=== PATIENT | male | born 1950 | race Caucasian/White ===

== ENCOUNTER 2016-11-24 13:12 | Inpatient (IN) | payer MEDICARE, BC ==
[~2016-11-24] VITALS: Ht 170.2 cm; Wt 87.5 kg
[2016-11-24] VITALS (9 sets, daily range): BP systolic 149–180; BP diastolic 73–83; PULSE 52–59; RESP 18; TEMP 97.8–97.9; O2SAT 98–99
[2016-11-24] MEDS ORDERED: TRAM50TA PO (17:31)
[2016-11-24] MEDS ORDERED: ALPR1TAB3 PO (17:31)
[2016-11-24] MEDS ORDERED: LEVO25TA4 PO (17:31)
[2016-11-24] MEDS ORDERED: PANT40TA3 PO (17:31)
[2016-11-24] MEDS ORDERED: HYDR-2374 PO (17:31)
[2016-11-24] MEDS ORDERED: LACT10SO48 (17:31)
[2016-11-24] MEDS ORDERED: AMLO-170 PO (17:31)
[2016-11-24] MEDS ORDERED: AMLO5TAB2 PO (17:31)
[2016-11-24] MEDS ORDERED: METO50TA PO (17:31)
[2016-11-24] MEDS ORDERED: NALOXONE HCL 0.4 MG/ML AMP IV PRN (17:45)
[2016-11-24] MEDS ORDERED: METOPROLOL TARTRATE 25 MG TAB PO SCH (17:45)
[2016-11-24] MEDS ORDERED: SENNOSIDES 8.6 MG TAB PO PRN (17:45)
[2016-11-24] MEDS ORDERED: CHLORHEXIDINE GLUCONATE 4% SOLN 120 ML BTL TOPICAL SCH (17:45)
[2016-11-24] MEDS ORDERED: BISACODYL 10 MG SUPP RECTAL PRN (17:45)
[2016-11-24] MEDS ORDERED: ceFAZolin 2 GM PREMIX 50 ML IV SCH (17:45)
[2016-11-24] MEDS ORDERED: CEFAZOLIN INJ 500 MG in SODIUM CHLORIDE 0.9% IRR BTL 500 ML IRRIGATION SCH (17:45)
[2016-11-24] MEDS ORDERED: ONDANSETRON HCL 4 MG/2 ML VIAL IVP PRN (17:45)
[2016-11-24] MEDS ORDERED: PAPAVERINE INJ 60 MG, NITROGLYCERIN INJ 100 MCG, DILTIAZEM INJ 100 MG in SODIUM CHLORID... IRRIGATION SCH (17:45)
[2016-11-24] MEDS ORDERED: SODIUM CHLORIDE 0.9% FLUSH 10 ML FLUSH IV FLUSH PRN ×2 (17:45)
[2016-11-24] MEDS ORDERED: MAGNESIUM HYDROXIDE SUSP 30 ML CUP PO PRN (17:45)
[2016-11-24] MEDS ORDERED: INSULIN REGULAR (IV INFUSION) 100 UNITS in SODIUM CHLORIDE 0.9% INJ 100 ML IV SCH (17:45)
[2016-11-24] MEDS ORDERED: LACTULOSE SYRUP 20 GM/30 ML CUP PO PRN (17:45)
[2016-11-24] MEDS ORDERED: NITROGLYCERIN 0.4 MG SL 25 TABS/BTL SL PRN (18:00)
[2016-11-24] MEDS ORDERED: hydrALAZINE HCL 20 MG/ML VIAL IV PUSH PRN (18:00)
--- NOTE | 2016-11-24 18:49 | MH ---
cc: LUPE MCNEIL MD DATE OF ADMISSION 11/24/2016 1951 HISTORY OF PRESENT ILLNESS A 66-year-old male transferred from [facility], patient of Dr. Angus Torres, also Dr. Josesito Barnes, with recent history of exertional shortness of breath for the past several months and started having some initial burning-type pressure in the middle of his chest, radiated to his left ear, jaw and left shoulder. The last time it happened it lasted about [address] Angus Torres and underwent Lexiscan which showed EF of 40%, a fixed inferior defect with partially reversible lateral defect. He then underwent cardiac cath electively today where his EF was 55-60%. The left main had a 75% stenosis and 80% stenosis in the proximal LAD, 90% in the first diagonal. The RCA had 100% stenosis in the proximal vessel. The patient was then transferred to our facility to be evaluated for coronary artery bypass grafting. PAST MEDICAL HISTORY 1. COPD, 2. Fibromyalgia 3. Hepatitis C. He has been on __ and in the past and is followed by Dr. Rubina Barreto 4. Hypertension, 5. Hyperthyroidism 6. Narcolepsy where he takes Ritalin 7. Skin lesions PAST SURGICAL HISTORY 1. Colonoscopy 2. Tonsillectomy. ALLERGIES No known allergies. FAMILY HISTORY Mother of Alzheimer's and Parkinson's. father had history of cancer. Grandfather had TB. SOCIAL HISTORY The patient , three children. Smoked for approximately 15 years, quit nine years ago. Heavy alcohol in the past but quit also nine years ago. REVIEW OF SYSTEMS GENERAL: No night sweats, fever, heat and cold intolerance. SKIN: No psoriasis, itching or hives. HEENT: No blurred vision, hearing loss. RESPIRATORY: Positive for recent shortness of breath. CARDIOVASCULAR: Chest pressure. No paroxysmal nocturnal dyspnea. No orthopnea. GASTROINTESTINAL: No diarrhea, vomiting. GENITOURINARY: No burning, frequency, urgency. MANAGER INVENTORY MANAGEMENT: No history of TIA, CVA, or seizure disorder. ENDOCRINE: No history of hypothyroidism and/or diabetes. PHYSICAL EXAMINATION VITAL SIGNS: Blood pressure 180/80, heart rate of 53, temperature max 97.8, respiratory rate of 18. GENERAL: Patient is awake, alert in no acute distress. HEENT: Head is normocephalic, atraumatic. Pupils equal and reactive. Oral mucosa pink, moist. NECK: Supple. No JVD. CARDIOVASCULAR: S1-S2 regular rate and rhythm. No rubs, murmurs, gallops. LUNGS: Clear to auscultation. No wheezes, rales or rhonchi. ABDOMEN: Soft, nontender. No masses or organomegaly. EXTREMITIES: No cyanosis, clubbing or edema LABORATORY DATA Hemoglobin 14, hematocrit of 44, white cell count 10, platelet count 192. Sodium 141, potassium 4.6, BUN of 15, creatinine 1.3. Serum of 272. CARDIOLOGY STUDIES EKG is pending. IMPRESSION 1. This is a 66-year-old male with recent abnormal Lexiscan, underwent cardiac cath with three-vessel disease. Planning coronary films will be evaluated by Dr. Lupe Mcneil. Procedures, alternatives and risks to be discussed with the patient. Planning will be for coronary artery bypass graft on Sunday with endoscopic harvesting. Further workup is still pending. 2. COPD. We will order p.r.n. nebs if needed. 3. History of hepatitis C 4. Hypertension. We will re-add his home medication. 5. History of narcolepsy. He is adamant about continuing his Ritalin preoperatively. 6. Chronic fibromyalgia and pain. We will reorder his pain medication as home. STS data will be discussed with the patient and documented in the electronic record. Further plan per Dr. Mcneil. Dictated by SHILA Fabian MD ANTHONY López/ /5:36 PM /8:49 AM
[2016-11-24] MEDS: ACETAMINOPHEN/HYDROcodone 325 MG/10 MG TAB PO PRN (19:29)
[2016-11-24] MEDS: ALPRAZolam 1 MG TAB PO PRN (19:29)
[2016-11-24] MEDS: ASPIRIN EC 81 MG TABEC PO SCH (19:29)
[2016-11-24] MEDS ORDERED: PILL SPLITTER OTHER PRN (19:45)
[2016-11-24] MEDS: DOCUSATE SODIUM 50 MG/SENNA 8.6 MG TAB PO SCH (20:58)
[2016-11-24] MEDS: METOPROLOL TARTRATE 25 MG TAB PO SCH (20:58)
[2016-11-24] MEDS: ATORVASTATIN 40 MG TAB PO SCH (20:58)
[2016-11-24] MEDS ORDERED: SODIUM CHLORIDE 0.9% FLUSH 10 ML FLUSH IV FLUSH SCH (21:00)
[2016-11-24] MEDS: SODIUM CHLORIDE 0.9% FLUSH 10 ML FLUSH IV FLUSH SCH (21:01)
--- NOTE | 2016-11-24 22:42 | RADRPT ---
EXAM DATE/TIME: 11/24/2016 21:03 [facility] COMPARISON: No previous studies available for comparison. INDICATIONS : Preop cardiac surgery. MEDICAL HISTORY : Hepatitis C. Hypertension. Syncope. Headache. Numbness. Chest pain. COPD. Dyspnea. ETOH abuse. SURGICAL HISTORY : Tonsillectomy. Cardiac cath. ENCOUNTER: Initial ACUITY: 1 day PAIN SCORE: 8/10 LOCATION: Bilateral leg. TECHNIQUE: Venous ultrasound of the left and right leg was performed from the inguinal ligament to the proximal calf. Real-time, color Doppler and spectral tracing, compression and augmentation techniques were us ed. FINDINGS: RIGHT LEG: There is normal compressibility of the deep venous system from the inguinal region to the proximal ca lf. No echogenic clot is seen in the lumen of the common femoral, femoral, popliteal, and posterior tibial veins. There is a normal response of the venous system to proximal and distal augmentation an d respiration. LEFT LEG: There is normal compressibility of the deep venous system from the inguinal region to the proximal ca lf. No echogenic clot is seen in the lumen of the common femoral, femoral, popliteal, and posterior tibial veins. There is a normal response of the venous system to proximal and distal augmentation an d respiration. CONCLUSION: No evidence of lower extremity DVT on the right or left. Jaciel Hobbs MD on November 24, 2016 at 22:39 Board Certified Radiologist. This report was verified electronically.
--- NOTE | 2016-11-24 22:43 | RADRPT ---
EXAM DATE/TIME: 11/24/2016 20:45 [facility] COMPARISON: No previous studies available for comparison. INDICATIONS : Preop cardiac surgery. MEDICAL HISTORY : Hepatitis C. Hypertension. Syncope. Headache. Numbness. Chest pain. COPD. Dyspnea. ETOH abuse. SURGICAL HISTORY : Tonsillectomy. Cardiac cath. ENCOUNTER: Initial ACUITY: 1 day PAIN SCORE: 8/10 LOCATION: Bilateral neck PEAK SYSTOLIC VELOCITIES (cm/sec): ICA/CCA RATIO: Right: 0.6 Left: 0.8 ICA: Right: 86 Left: 91 CCA: Right: 135 Left: 110 ECA: Right: 105 Left: 103 VERTEBRAL: Right: 54 antegrade Left: 75 antegrade Elevated flow velocities and ICA/CCA ratios have been found to correlate with increased degrees of vessel stenosis, calculated as percentage of diameter relative to a normal segment of distal ICA/CCA FINDINGS: RIGHT CAROTID: No significant stenosis is visualized. The waveforms are within normal limits. LEFT CAROTID: No significant stenosis is visualized. The waveforms are within normal limits. VERTEBRAL ARTERIES: Antegrade flow is seen in both vertebral arteries. MISCELLANEOUS: None. CONCLUSION: Mild calcified plaque of the carotid bulbs bilaterally. No evidence of hemodynamically significant ca rotid stenosis. Jaciel Hobbs MD on November 24, 2016 at 22:40 Board Certified Radiologist. This report was verified electronically.
--- NOTE | 2016-11-24 23:05 | RADRPT ---
EXAM DATE/TIME: 11/24/2016 21:10 [facility] COMPARISON: No previous studies available for comparison. INDICATIONS : Preop cardiac surgery. MEDICAL HISTORY : Hepatitis C. Hypertension. Syncope. Headache. Numbness. Chest pain. COPD. Dyspnea. ETOH abuse. SURGICAL HISTORY : Tonsillectomy. Cardiac cath. ENCOUNTER: Initial ACUITY: 1 day PAIN SCORE: 8/10 LOCATION: Bilateral leg. GREATER SAPHENOUS VEIN THIGH: PROXIMAL: Right 4 mm Left 4 mm MID: Right 4 mm Left 4 mm DISTAL: Right 4 mm Left 4 mm CALF: PROXIMAL: Right 3 mm Left 2 mm MID: Right 2 mm Left 2 mm DISTAL: Right 1 mm Left 1 mm FINDINGS: The venous system of the lower extremities are patent by color Doppler imaging. Measurements of the leg veins (in mm) are listed above. CONCLUSION: Normal examination. Cecilio Sinclair MD on November 24, 2016 at 23:03 Board Certified Radiologist. This report was verified electronically.
[2016-11-25] VITALS (25 sets, daily range): BP systolic 154–202; BP diastolic 60–95; PULSE 53–109; RESP 16–18; TEMP 98–98.6; O2SAT 97–99
[2016-11-25 05:29] LABS: BLOOD, URINE NEG (NEG); COMMENT (UR) CULT NOT INDICATED; CULTURE IF INDICATED CULT NOT INDICATED; GLUCOSE,URINE NEG (NEG); HYALINE CAST, URINE 1 /lpf (RARE); KETONE, URINE NEG (NEG); MUCUS URINE FEW /lpf (OCC); NITRITE,URINE NEG (NEG); PH, URINE 5.5 (5.0-8.5); SQUAMOUS EPITHELIAL CELL URINE <1 /hpf (0-5); URINE COLOR YELLOW (YELLW/STRAW)
[2016-11-25] MEDS: METHYLPHENIDATE HCL 10 MG TAB PO SCH ×2 (06:42→11:30)
[2016-11-25] MEDS: PANTOPRAZOLE SOD 40 MG DELAYED RELEASE TAB PO SCH (06:42)
[2016-11-25] MEDS: LEVOTHYROXINE SODIUM 25 MCG TAB PO SCH (06:42)
[2016-11-25] MEDS: ASPIRIN EC 81 MG TABEC PO SCH (08:07)
[2016-11-25] MEDS: DOCUSATE SODIUM 50 MG/SENNA 8.6 MG TAB PO SCH ×2 (08:07→20:35)
[2016-11-25] MEDS: METOPROLOL TARTRATE 25 MG TAB PO SCH (08:07)
[2016-11-25] MEDS: ACETAMINOPHEN/HYDROcodone 325 MG/10 MG TAB PO PRN ×3 (08:07→19:57)
[2016-11-25] MEDS: SODIUM CHLORIDE 0.9% FLUSH 10 ML FLUSH IV FLUSH SCH ×2 (08:09→20:34)
--- NOTE | 2016-11-25 09:24 | RADRPT ---
EXAM DATE/TIME: 11/25/2016 09:14 [facility] COMPARISON: No previous studies available for comparison. INDICATIONS : Evaluate for pneumonia, pneumothorax, or communicable disease. Pre-op cardiac surgery. MEDICAL HISTORY : Hepatitis C. Hypertension. Syncope. Headache. Numbness. Chest pain. COPD.Dyspnea. ETOH abuse. SURGICAL HISTORY : Tonsillectomy. Cardiac cath. ENCOUNTER: Initial ACUITY: 1 day PAIN SCORE: 0/10 LOCATION: Bilateral chest FINDINGS: PA and lateral views of the chest demonstrate a normal-sized cardiac silhouette. There is no effusion , consolidation, or pneumothorax. The bones and soft tissues demonstrate no acute abnormality. There are degenerative changes of the thoracic spine. CONCLUSION: No acute cardiopulmonary abnormality is identified. Tyrone Pascual MD on November 25, 2016 at 9:20 Board Certified Radiologist. This report was verified electronically.
--- NOTE | 2016-11-25 09:38 | PD.CAR.PN ---
CVT Progress Note Subjective/Hospital Course: 11/25 CP free OR Sunday Objective: Vital Signs Date Time Temp Pulse Resp B/P Pulse Ox O2 Delivery O2 Flow Rate FiO2 11/25/16 09:04 62 11/25/16 09:04 18 11/25/16 08:00 98.4 71 18 180/95 99 11/25/16 08:00 71 11/25/16 06:00 56 11/25/16 05:00 60 11/25/16 04:03 54 11/25/16 04:00 98.0 59 18 160/77 98 11/25/16 03:00 56 11/25/16 02:08 59 11/25/16 01:00 63 11/25/16 00:00 67 11/25/16 00:00 98.0 53 18 154/71 98 11/24/16 23:05 58 11/24/16 22:00 56 11/24/16 21:00 59 11/24/16 20:00 97.9 59 18 149/73 98 11/24/16 20:00 58 11/24/16 19:00 59 11/24/16 18:11 55 11/24/16 17:00 57 11/24/16 16:54 97.8 53 18 180/83 99 11/24/16 16:00 52 Labs: Laboratory Tests Test 11/25/16 05:00 Urine Color YELLOW (YELLW/STRAW) Urine Turbidity CLEAR (CLEAR) Urine pH 5.5 (5.0-8.5) Urine Specific [place] 1.025 (1.002-1.035) Urine Protein NEG mg/dL (NEG-TRACE) Urine Glucose (UA) NEG mg/dL (NEG) Urine Ketones NEG mg/dL (NEG) Urine Occult Blood NEG (NEG) Urine Nitrite NEG (NEG) Urine Bilirubin NEG (NEG) Urine Urobilinogen LESS THAN 2.0 MG/DL (LESS THAN 2.0) Urine Leukocyte Esterase NEG (NEG) Urine RBC LESS THAN 1 /hpf (0-3) Urine WBC 1 /hpf (0-5) Urine Squamous Epithelial <1 /hpf (0-5) Cells Urine Hyaline Casts 1 /lpf (RARE) Urine Mucus FEW /lpf (OCC) Microscopic Urinalysis Comment CULT NOT INDICATED Selena Manley MD Nov 25, 2016 09:38
[2016-11-25] MEDS: traMADol HCL 50 MG TAB PO PRN ×2 (11:30→19:57)
--- NOTE | 2016-11-25 13:25 | EKG ---
Date Performed: 11/24/2016 Time Performed: 18:18:54 PTAGE: 66 years EKG: Sinus bradycardia with borderline 1st degree A-V block Inferior infarct - age undetermined Lateral T wave changes may be due to myocardial ischemia Abnormal ECG NO PREVIOUS TRACING DOCTOR: Angus Torres Interpretating Date/Time 11/25/2016 13:25:12
[2016-11-25] MEDS: METOPROLOL TARTRATE 50 MG TAB PO SCH (20:34)
[2016-11-25] MEDS: ATORVASTATIN 40 MG TAB PO SCH (20:34)
[2016-11-26] VITALS (24 sets, daily range): BP systolic 132–171; BP diastolic 56–88; PULSE 50–74; RESP 18–20; TEMP 98.1–98.7; O2SAT 96–99
[2016-11-26] MEDS ORDERED: METH20CA PO (01:22)
[2016-11-26] MEDS ORDERED: CYCL5TAB PO (01:22)
[2016-11-26 05:29] LABS: BASOPHIL % 0.2 % (0.0-2.0); EOSINOPHIL # 0.1 TH/MM3 (0-0.4); EOSINOPHIL % 0.9 % (0.0-4.0); HEMATOCRIT 46.6 % (39.0-51.0); HEMO FLAGS DIFF FINAL; LYMPH % 39.2 % (9.0-44.0); LYMPHOCYTE # 3.8 TH/MM3 (1.0-4.8); MEAN CELL VOLUME 82.8 FL (80.0-100.0); MEAN CORPUSCULAR HEMOGLOBIN 27.3 PG (27.0-34.0); MEAN CORPUSCULAR HGB CONC 32.9 % (32.0-36.0); MONO % 8.1 % (0.0-8.0); NEUT % 51.6 % (16.0-70.0); PLATELET COUNT 151 TH/MM3 (150-450); RED BLOOD COUNT 5.63 MIL/MM3 (4.50-5.90); RED CELL DISTRIBUTION WIDTH 13.3 % (11.6-17.2); WHITE BLOOD COUNT 9.8 TH/MM3 (4.0-11.0)
[2016-11-26 05:39] LABS: INTERNATIONAL NORMALIZED RATIO 1.1 RATIO; PROTHROMBIN TIME - PATIENT 11.9 SEC (9.8-11.6)
[2016-11-26] MEDS: cloNIDine HCL 0.1 MG TAB PO PRN ×2 (05:54→14:58)
[2016-11-26] MEDS: PANTOPRAZOLE SOD 40 MG DELAYED RELEASE TAB PO SCH (05:55)
[2016-11-26] MEDS: LEVOTHYROXINE SODIUM 25 MCG TAB PO SCH (05:55)
[2016-11-26] MEDS: ACETAMINOPHEN/HYDROcodone 325 MG/10 MG TAB PO PRN ×3 (05:55→18:38)
[2016-11-26] MEDS: METHYLPHENIDATE HCL 10 MG TAB PO SCH ×2 (05:55→11:34)
[2016-11-26] MEDS: traMADol HCL 50 MG TAB PO PRN ×2 (05:55→14:58)
[2016-11-26 05:59] LABS: ALT (GPT) 36 U/L (12-78); ANION GAP 6 MEQ/L (5-15); AST (GOT) 36 U/L (15-37); BLOOD UREA NITROGEN 11 MG/DL (7-18); CHLORIDE 107 MEQ/L (98-107); GLOMERULAR FILTRATION RATE 81 ML/MIN (>89); SODIUM (NA) 141 MEQ/L (136-145)
[2016-11-26 06:01] LABS: ALKALINE PHOSPHATASE 94 U/L (45-117); HDL CHOLESTEROL 35.4 MG/DL (40.0-60.0); LDL CHOLESTEROL 133 MG/DL (0-99); TOTAL BILIRUBIN ADULT 0.8 MG/DL (0.2-1.0)
[2016-11-26] MEDS: DOCUSATE SODIUM 50 MG/SENNA 8.6 MG TAB PO SCH ×2 (07:18→21:00)
[2016-11-26] MEDS: SODIUM CHLORIDE 0.9% FLUSH 10 ML FLUSH IV FLUSH SCH ×2 (07:20→21:16)
[2016-11-26] MEDS: METOPROLOL TARTRATE 50 MG TAB PO SCH ×2 (07:20→21:15)
[2016-11-26] MEDS: ASPIRIN EC 81 MG TABEC PO SCH (07:20)
--- NOTE | 2016-11-26 09:42 | PD.CAR.PN ---
CVT Progress Note Subjective/Hospital Course: 11/25 CP free OR Sunday 11/26 Pain free and hemodynamically stable Awaiting cath films from [facility] Objective: Vital Signs Date Time Temp Pulse Resp B/P Pulse Ox O2 Delivery O2 Flow Rate FiO2 11/26/16 09:18 153/83 11/26/16 09:00 59 11/26/16 08:22 98.5 64 18 171/85 96 11/26/16 08:22 71 11/26/16 06:55 18 11/26/16 06:55 18 11/26/16 06:01 74 11/26/16 05:27 65 11/26/16 04:04 55 11/26/16 03:35 98.1 72 18 164/88 99 11/26/16 03:20 54 11/26/16 02:09 65 11/26/16 01:06 55 11/26/16 00:02 56 11/25/16 23:20 98.3 65 16 Automatic Cuff 97 11/25/16 23:00 55 11/25/16 22:00 58 11/25/16 21:00 58 11/25/16 20:32 98.0 55 18 184/82 97 202/87 11/25/16 20:32 109 11/25/16 18:32 163/92 11/25/16 18:13 85 11/25/16 17:07 71 11/25/16 16:10 71 11/25/16 15:52 58 11/25/16 15:52 98.6 60 18 170/60 99 11/25/16 14:03 63 11/25/16 13:12 68 11/25/16 12:33 69 11/25/16 11:23 98.6 60 18 158/70 97 11/25/16 11:23 57 11/25/16 10:46 54 Labs: Laboratory Tests Test 11/26/16 11/26/16 04:37 05:46 White Blood Count 9.8 TH/MM3 (4.0-11.0) Red Blood Count 5.63 MIL/MM3 (4.50-5.90) Hemoglobin 15.3 GM/DL (13.0-17.0) Hematocrit 46.6 % (39.0-51.0) Mean Corpuscular Volume 82.8 FL (80.0-100.0) Mean Corpuscular Hemoglobin 27.3 PG (27.0-34.0) Mean Corpuscular Hemoglobin 32.9 % Concent (32.0-36.0) Red Cell Distribution Width 13.3 % (11.6-17.2) Platelet Count 151 TH/MM3 (150-450) Mean Platelet Volume 9.3 FL (7.0-11.0) Neutrophils (%) (Auto) 51.6 % (16.0-70.0) Lymphocytes (%) (Auto) 39.2 % (9.0-44.0) Monocytes (%) (Auto) 8.1 % (0.0-8.0) Eosinophils (%) (Auto) 0.9 % (0.0-4.0) Basophils (%) (Auto) 0.2 % (0.0-2.0) Neutrophils # (Auto) 5.0 TH/MM3 (1.8-7.7) Lymphocytes # (Auto) 3.8 TH/MM3 (1.0-4.8) Monocytes # (Auto) 0.8 TH/MM3 (0-0.9) Eosinophils # (Auto) 0.1 TH/MM3 (0-0.4) Basophils # (Auto) 0.0 TH/MM3 (0-0.2) CBC Comment DIFF FINAL Differential Comment Prothrombin Time 11.9 SEC (9.8-11.6) Prothromb Time International 1.1 RATIO Ratio Sodium Level 141 MEQ/L (136-145) Potassium Level 4.0 MEQ/L (3.5-5.1) Chloride Level 107 MEQ/L (98-107) Carbon Dioxide Level 28.0 MEQ/L (21.0-32.0) Anion Gap 6 MEQ/L (5-15) Blood Urea Nitrogen 11 MG/DL (7-18) Creatinine 0.94 MG/DL (0.60-1.30) Estimat Glomerular Filtration 81 ML/MIN (>89) Rate Random Glucose 104 MG/DL (74-106) Calcium Level 8.5 MG/DL (8.5-10.1) Total Bilirubin 0.8 MG/DL (0.2-1.0) Aspartate Amino Transf 36 U/L (15-37) (AST/SGOT) Alanine Aminotransferase 36 U/L (12-78) (ALT/SGPT) Alkaline Phosphatase 94 U/L (45-117) Total Protein 7.9 GM/DL (6.4-8.2) Albumin 3.4 GM/DL (3.4-5.0) Triglycerides Level 135 MG/DL (42-150) Cholesterol Level 195 MG/DL (120-200) LDL Cholesterol 133 MG/DL (0-99) HDL Cholesterol 35.4 MG/DL (40.0-60.0) Cholesterol/HDL Ratio 5.50 RATIO Blood Type A POSITIVE A POSITIVE Antibody Screen NEGATIVE Crossmatch Leukocyte-Reduced Red Blood Cells Blood Bank Comment Result Diagram: 11/26/16 0437 11/26/16 0437 Selena Manley MD Nov 26, 2016 09:42
[2016-11-26 09:51] LABS: HEMOGLOBIN A1a 0.8 %; HEMOGLOBIN A1b 1.6 %; HEMOGLOBIN LA1C 2.1 %; HEMOGLOBIN P3 3.8 %
[2016-11-26] MEDS: ALPRAZolam 1 MG TAB PO PRN (11:34)
[2016-11-26] MEDS: ATORVASTATIN 40 MG TAB PO SCH (21:15)
[2016-11-27] VITALS (27 sets, daily range): BP systolic 124–174; BP diastolic 51–85; PULSE 46–65; RESP 16–20; TEMP 97.6–98.5; O2SAT 97–100
[2016-11-27] MEDS: traMADol HCL 50 MG TAB PO PRN ×2 (00:32→22:30)
[2016-11-27] MEDS: ACETAMINOPHEN/HYDROcodone 325 MG/10 MG TAB PO PRN ×4 (04:23→23:29)
[2016-11-27] MEDS: METHYLPHENIDATE HCL 10 MG TAB PO SCH ×2 (06:19→12:28)
[2016-11-27] MEDS: PANTOPRAZOLE SOD 40 MG DELAYED RELEASE TAB PO SCH (06:20)
[2016-11-27] MEDS: LEVOTHYROXINE SODIUM 25 MCG TAB PO SCH (06:20)
[2016-11-27] MEDS: DOCUSATE SODIUM 50 MG/SENNA 8.6 MG TAB PO SCH ×2 (09:00→20:11)
--- NOTE | 2016-11-27 09:02 | PD.CAR.PN ---
CVT Progress Note Subjective/Hospital Course: sts discussed with pt RISK SCORES About the STS Risk Calculator Procedure: CAB Only Risk of Mortality: 0.631% Morbidity or Mortality: 9.861% Long Length of Stay: 3.322% Short Length of Stay: 55.114% Permanent Stroke: 0.914% Prolonged Ventilation: 7.15% DSW Infection: 0.341% Renal Failure: 1.495% Reoperation: 4.315% 11/25 CP free OR Sunday 11/26 Pain free and hemodynamically stable Awaiting cath films from [facility] Objective: Vital Signs Date Time Temp Pulse Resp B/P Pulse Ox O2 Delivery O2 Flow Rate FiO2 11/27/16 07:42 98.4 58 18 157/81 98 11/27/16 07:37 53 11/27/16 06:00 46 11/27/16 05:00 46 11/27/16 04:00 97.8 53 18 124/58 100 11/27/16 04:00 46 11/27/16 03:00 46 11/27/16 02:00 48 11/27/16 01:00 46 11/27/16 00:00 50 11/27/16 00:00 97.6 57 20 124/51 98 11/26/16 23:00 50 11/26/16 22:00 50 11/26/16 20:00 68 11/26/16 20:00 98.7 67 20 132/56 98 11/26/16 19:00 66 11/26/16 18:06 61 11/26/16 17:14 63 11/26/16 16:13 51 11/26/16 16:12 18 11/26/16 15:15 98.7 66 18 160/80 99 11/26/16 15:15 62 11/26/16 14:21 52 11/26/16 13:00 68 11/26/16 12:44 18 11/26/16 12:00 53 11/26/16 11:43 98.6 61 18 161/81 97 11/26/16 11:43 63 11/26/16 10:06 58 11/26/16 09:18 153/83 11/26/16 09:00 59 Result Diagram: 11/26/16 0437 11/26/16 043 Sharita Tello Nov 27, 2016 09:02
[2016-11-27] MEDS: ASPIRIN EC 81 MG TABEC PO SCH (09:54)
[2016-11-27] MEDS: METOPROLOL TARTRATE 50 MG TAB PO SCH (09:54)
[2016-11-27] MEDS: cloNIDine HCL 0.1 MG TAB PO PRN (09:54)
[2016-11-27] MEDS: ALPRAZolam 1 MG TAB PO PRN ×2 (09:54→20:11)
[2016-11-27] MEDS: SODIUM CHLORIDE 0.9% FLUSH 10 ML FLUSH IV FLUSH SCH ×2 (09:55→20:12)
--- NOTE | 2016-11-27 13:21 | PD.CAR.PN ---
CVT Progress Note Subjective/Hospital Course: 66/ male transferred from [facility] c/o several month hx of SOB, fatigue, underwent lexiscan + reversible defect lateral wall, EF 40%/ Underwent cardiac cath : LM 75%, 80% LAD, 90% 1st diagonal, RCA 100% EF 55 % by cath PMH: fibromyalgia, Hep C, HTN, COPD, Narcolepsy ( ritalin) 11/25 CP free OR Sunday 11/26 Pain free and hemodynamically stable Awaiting cath films from [facility] 11/27 Cardiac cath films reviewed by Dr Mcneil for surgery in am, pain free over the weekend Objective: GENERAL: SKIN: Warm and dry. HEAD: Normocephalic. EYES: No scleral icterus. No injection or drainage. NECK: Supple, trachea midline. No JVD or lymphadenopathy. CARDIOVASCULAR: Regular rate and rhythm without murmurs, gallops, or rubs. RESPIRATORY: Breath sounds equal bilaterally. No accessory muscle use. GASTROINTESTINAL: Abdomen soft, non-tender, nondistended. MUSCULOSKELETAL: No cyanosis, or edema. BACK: Nontender without obvious deformity. No CVA tenderness. Vital Signs Date Time Temp Pulse Resp B/P Pulse Ox O2 Delivery O2 Flow Rate FiO2 11/27/16 12:38 59 11/27/16 12:26 16 11/27/16 12:21 98.1 59 16 142/76 98 11/27/16 11:38 61 11/27/16 11:00 58 11/27/16 10:17 52 11/27/16 10:00 62 18 174/85 97 11/27/16 09:00 62 11/27/16 08:00 58 11/27/16 07:42 98.4 58 18 157/81 98 11/27/16 07:37 53 11/27/16 06:00 46 11/27/16 05:00 46 11/27/16 04:00 97.8 53 18 124/58 100 11/27/16 04:00 46 11/27/16 03:00 46 11/27/16 02:00 48 11/27/16 01:00 46 11/27/16 00:00 50 11/27/16 00:00 97.6 57 20 124/51 98 11/26/16 23:00 50 11/26/16 22:00 50 11/26/16 20:00 68 11/26/16 20:00 98.7 67 20 132/56 98 11/26/16 19:00 66 11/26/16 18:06 61 11/26/16 17:14 63 11/26/16 16:13 51 11/26/16 16:12 18 11/26/16 15:15 98.7 66 18 160/80 99 11/26/16 15:15 62 11/26/16 14:21 52 Result Diagram: 11/26/16 0437 11/26/16436 Telemetry: NSR (1) COPD (chronic obstructive pulmonary disease) Plan: on prn nebs (2) Coronary artery disease Plan: ASA, BB statin (3) Narcolepsy Plan: on ritalin (4) Anxiety (5) Hypertension Plan: stable Sharita Tello Nov 27, 2016 13:21
[2016-11-27] MEDS: LACTULOSE SYRUP 20 GM/30 ML CUP PO SCH (15:27)
[2016-11-27] MEDS: amLODIPine BESYLATE 5 MG TAB PO SCH (15:27)
[2016-11-27] MEDS: ATORVASTATIN 40 MG TAB PO SCH (20:11)
[2016-11-27] MEDS ORDERED: ALBU.5I NEB (20:46)
[2016-11-27] MEDS ORDERED: METOPROLOL TARTRATE 50 MG TAB PO SCH ×2 (21:00→21:30)
[2016-11-27] MEDS ORDERED: RESP: ALBUTEROL 2.5 MG/3 ML NEB (PRN) INH (21:30)
[2016-11-28] VITALS (20 sets, daily range): BP systolic 126–145; BP diastolic 53–72; PULSE 48–89; RESP 16–18; TEMP 96.7–99.4; O2SAT 92–99
[2016-11-28] MEDS: LEVOTHYROXINE SODIUM 25 MCG TAB PO SCH (04:49)
[2016-11-28] MEDS: PANTOPRAZOLE SOD 40 MG DELAYED RELEASE TAB PO SCH (04:49)
[2016-11-28] MEDS: ALPRAZolam 1 MG TAB PO PRN (04:50)
[2016-11-28] MEDS ORDERED: NITROGLYCERIN-DEXTROSE INJ 250 ML IV ONE (05:00)
[2016-11-28] MEDS ORDERED: DEXMEDETOMIDINE INJ 50 ML IV ONE (05:00)
[2016-11-28] MEDS ORDERED: HEPARIN SODIUM - SQ 10,000 UNITS/ML VIAL SQ ONE (05:00)
[2016-11-28] MEDS ORDERED: CALCIUM CHLORIDE 10% SOLN 1 GRAM/10 ML SYR IV ONE (05:00)
[2016-11-28] MEDS ORDERED: GLYCOPYRROLATE 0.2 MG/ML VIAL IV ONE (05:00)
[2016-11-28] MEDS ORDERED: NEOSTIGMINE METHYLSULFATE 10 MG/10 ML VIAL IV PUSH ONE (05:00)
[2016-11-28] MEDS ORDERED: VECURONIUM BROMIDE 10 MG VIAL IV ONE (05:00)
[2016-11-28] MEDS ORDERED: PROTAMINE SULFATE 250 MG/25 ML VIAL IV ONE (05:00)
[2016-11-28] MEDS ORDERED: MAGNESIUM SULFATE 1000 MG/2 ML VIAL (PED) IV ONE (05:00)
[2016-11-28] MEDS ORDERED: ceFAZolin INJ 1,000 MG VIAL IV ONE (05:00)
[2016-11-28] MEDS ORDERED: AMINOCAPROIC ACID INJ 250 MG/ML 20 ML VIAL IV ONE ×2 (05:00→14:30)
[2016-11-28] MEDS ORDERED: ARTIFICIAL TEARS OPTH OINT 3.5 APPLIC/3.5 GM TUBO ONE (05:00)
[2016-11-28] MEDS ORDERED: SODIUM BICARBONATE 8.4% INJ 50 MEQ/50 ML SYR IV ONE (05:00)
[2016-11-28] MEDS: ACETAMINOPHEN/HYDROcodone 325 MG/10 MG TAB PO PRN ×3 (05:29→21:27)
[2016-11-28] MEDS: METHYLPHENIDATE HCL 10 MG TAB PO SCH ×2 (06:15→12:00)
[2016-11-28] MEDS ORDERED: ceFAZolin 2 GM PREMIX 50 ML ONE (06:21)
[2016-11-28] MEDS ORDERED: VANCOMYCIN HCL 1000 MG VIAL ONE (06:21)
[2016-11-28] MEDS ORDERED: methylPREDNISolone SOD SUCC 125 MG/2 ML VIAL ONE (06:21)
[2016-11-28] MEDS ORDERED: HEPARIN SODIUM - SQ 10,000 UNITS/ML VIAL ONE (06:21)
[2016-11-28] MEDS ORDERED: CARDIOPLEGIC IRR 1,000 ML ONE (07:10)
[2016-11-28] MEDS ORDERED: POTASSIUM CHLORIDE 40 MEQ/20 ML VIAL ONE (07:10)
[2016-11-28] MEDS ORDERED: MANNITOL INJ 50 ML ONE (07:11)
[2016-11-28] MEDS ORDERED: SODIUM BICARBONATE 8.4% INJ 50 ML ONE (07:11)
[2016-11-28] MEDS ORDERED: ALBUMIN HUMAN 25% 12.5 GM/50 ML BAGP IV ONE (07:11)
[2016-11-28] MEDS ORDERED: HEPARIN SODIUM - IV 10,000 UNITS/10 ML VIAL ONE (07:12)
[2016-11-28] MEDS ORDERED: CHLORHEXIDINE GLUCONATE 2 % 1 PACK (2 CLOTHS) TOPICAL ONE (07:25)
--- NOTE | 2016-11-28 09:54 | RSPPFT ---
DATE OF PROCEDURE: 11/27/16 COMMENTS: Spirometry shows FVC of 2.5 at 73% of predicted, FEV1 of 1.9 at 73%, FEV1/FVC ratio is normal. Flow is normal at FEF 25-75. Flow volume loop indicates a normal pattern. IMPRESSION: 1. Normal spirometry. 2. Post-bronchodilator study was not done.
[2016-11-28] MEDS ORDERED: LACTATED RINGER'S 1000 ML INJ 500 ML IV PRN (11:22)
[2016-11-28] MEDS ORDERED: Post-op Orders (for Pharmacy) MISC OTHER ONE (11:30)
[2016-11-28] MEDS ORDERED: RESP: RACEPINEPHRINE 2.25% 0.5 ML NEB NEB PRN ×2 (11:30→12:30)
[2016-11-28] MEDS ORDERED: POTASSIUM CHLORIDE 20 MEQ CONTROLLED RELEASE TAB PO PRN ×2 (11:30)
[2016-11-28] MEDS ORDERED: CALCIUM CHLORIDE 10% 1 GRAM/10 ML VIAL IV PRN (11:30)
[2016-11-28] MEDS ORDERED: DEXTROSE 50% IN WATER 50 ML VIAL(D50) IV PUSH PRN (11:30)
[2016-11-28] MEDS ORDERED: POTASSIUM CHLOR 20 MEQ PREMIX 100 ML IV PRN ×3 (11:30)
[2016-11-28] MEDS ORDERED: oxyCODONE/ACETAMINOPHEN 5 MG/325 MG TAB PO PRN (11:30)
[2016-11-28] MEDS ORDERED: MAGNESIUM SULFATE INJ 2 GM in SODIUM CHLORIDE 0.9% INJ 100 ML IV PRN ×4 (11:30)
[2016-11-28] MEDS ORDERED: hydrALAZINE HCL 20 MG/ML VIAL IV PRN (11:30)
[2016-11-28] MEDS ORDERED: ACETAMINOPHEN 325 MG TAB PO PRN (11:30)
[2016-11-28] MEDS ORDERED: INSULIN REGULAR (IV INFUSION) 100 UNITS in SODIUM CHLORIDE 0.9% INJ 99 ML IV SCH (11:30)
[2016-11-28] MEDS ORDERED: ACETAMINOPHEN 650 MG SUPP RECTAL PRN (11:30)
[2016-11-28] MEDS ORDERED: RESP: ALBUTEROL 2.5 MG/IPRATROPIUM 0.5 MG NEB (PRN) NEB ×2 (11:30→12:30)
--- NOTE | 2016-11-28 11:33 | PD.OP ---
cc: Lupe Mcneil MD; Angus Torres MD Operative Report Date of Surgery: Nov 28, 2016 Preoperative Diagnosis: (1) Coronary artery disease (2) Unstable angina Postoperative Diagnosis: same Procedure: CABG x 4 MARI to LAD - good SVG to D! - good SVG to PLB - good SVG to PDA - fair EVH Anesthesia: Dr. Berry Surgeon: Lupe Mcneil Recycling Tech(s): DAVE Vargas Operation and Findings: The risks, benefits, complications, treatment options, and expected outcomes were discussed with the patient. The possibilities of reaction to medication, pulmonary aspiration, perforation of viscus, bleeding, recurrent infection, the need for additional procedures, failure to diagnose a condition, and creating a complication requiring transfusion or operation were discussed with the patient. The patient concurred with the proposed plan, giving informed consent. The site of surgery properly noted/marked. The patient was taken to Operating Room # , identified as Kenny Joshualatanya, and the procedure verified as CABG, EVH, ALIS. A Time Out was held and the above information confirmed. Standard monitoring lines and Schroeder catheter were placed. General anesthesia was induced. The patient was prepped and draped in a sterile fashion. A median sternotomy was performed and electrocautery was used to obtain hemostasis. The left internal mammary artery was procured as a pedicle from the 7th rib to the 1st rib in the usual manner. Simultaneously left greater saphenous vein was procured from the left leg using a minimally invasive endoscopic technique. The vein was prepared for anastomosis and the leg wound was irrigated and closed in 2 layers. The pericardium was opened and a pericardial sling was created using interrupted 0 silk sutures. The patient was heparinized for cardiopulmonary bypass and the distal mammary pedicle was instrumented for anastomosis. The heart was instrumented for cardiopulmonary bypass in the usual manner. Antegrade blood cardioplegia was employed. The patient was placed on cardiopulmonary bypass. An aortic cross-clamp was applied and the heart was arrested using cold blood cardioplegia. Antegrade cardioplegia was administered after each anastomosis. After adequate arrest, the distal right coronary circulation was investigated and the distal PLB was opened with a [place] blade and found to be a 1.5 millimeter good target. Saphenous vein was approximated to the PLB artery using a running 7 0 Prolene suture. The graft was measured for length and orientation and the proximal anastomosis was constructed to the ascending aorta using a running 5 0 Prolene suture after creating an aortotomy with a 5 millimeter punch. The distal PDA was opened with a [place] blade and found to be a 1 millimeter fair target. Saphenous vein was approximated to the PDA artery using a running 7 0 Prolene suture. The graft was measured for length and orientation and the proximal anastomosis was constructed to the ascending aorta using a running 5 0 Prolene suture after creating an aortotomy with a 5 millimeter punch. The 1st diagonal artery was then opened with a [place] blade and found to be a 1.5 millimeter good target. Saphenous vein was approximated to the D1 artery using a running 7 0 Prolene suture. The graft was measured for length and orientation and was suspended from the pericardium. The distal LAD was opened with a [place] blade and found to be a 1.5 millimeter good target. The left internal mammary artery was approximated to the LAD using a running 7 0 Prolene suture. The pedicle was attached to the epicardium using interrupted 5 0 silk suture. The patient was systemically rewarmed and received a hotshot dose of warm blood cardioplegia. The aorta was vented and the proximal anastomosis to the D1 graft was accomplished using a running 5 0 Prolene suture after creating an aortotomy was a 5 millimeter punch. The cross -clamp was removed and all proximal and distal anastomoses were examined for hemostasis. Temporary atrial pacing on wires were positioned and brought out through the skin in the usual manner. The patient was paced at 80 beats per minute and weaned from cardiopulmonary bypass. Protamine was given. There was no adverse reaction. Decannulation was carried out without incident. Wound was checked for hemostasis which was obtained using electrocautery. A 36 [place] mediastinal and 32 [place] left pleural chest tubes were placed and secured to the skin with 0 silk suture. The sternum was closed with stainless steel wire. The fascia was closed with 1. PDS. The subcutaneous tissue was closed using a running 2-0 Vicryl suture. The skin was closed with 4-0 Monocryl. Sterile dressings were placed. At the end of the operation, all sponge, instruments, and needle counts were correct. The patient was transferred to the CVICU in stable condition. Findings: No suitable marginal targets were found XC: 73 min CPB: 88 min Drains: mediastinal x 1 pleural x 1 Complications: none Disposition: to CVICU in stable condition Pacing Wires: 2 atrial Lupe Mcneil MD Nov 28, 2016 11:33
[2016-11-28] MEDS: ACETAMINOPHEN 1000 MG/100 ML VIAL IV SCH ×2 (12:00→17:59)
[2016-11-28] MEDS: CLEVIDIPINE INJ 50 ML IV SCH (12:16)
[2016-11-28] MEDS: amLODIPine BESYLATE 5 MG TAB PO SCH (12:17)
[2016-11-28] MEDS: LACTULOSE SYRUP 20 GM/30 ML CUP PO SCH (12:18)
[2016-11-28] MEDS: ASPIRIN EC 81 MG TABEC PO SCH (12:18)
[2016-11-28] MEDS: CALCIUM CHLORIDE INJ 1 GM in SODIUM CHLORIDE 0.9% INJ 100 ML IV PRN ×2 (12:37→18:23)
[2016-11-28] MEDS: DOCUSATE SODIUM 50 MG/SENNA 8.6 MG TAB PO SCH ×3 (12:39→21:13)
[2016-11-28] MEDS: SODIUM CHLORIDE 0.9% FLUSH 10 ML FLUSH IV FLUSH SCH ×2 (12:40→21:14)
[2016-11-28] MEDS ORDERED: MIDAZOLAM HCL 5 MG/5 ML VIAL ONE (12:43)
[2016-11-28] MEDS ORDERED: fentaNYL CITRATE 1000 MCG/20 ML VIAL ONE (12:43)
--- NOTE | 2016-11-28 13:00 | RADRPT ---
EXAM DATE/TIME: 11/28/2016 12:07 [facility] COMPARISON: CHEST PA & LAT, November 25, 2016, 9:14. INDICATIONS : Post op heart surgery. MEDICAL HISTORY : Hepatitis C. Hypertension. Syncope. Headache. Numbness. Chest pain. COPD. Dyspnea. SURGICAL HISTORY : Tonsillectomy. Cardiac cath. ENCOUNTER: Subsequent ACUITY: 1 day PAIN SCORE: Non-responsive. LOCATION: Bilateral chest FINDINGS: The left-sided chest tubes in excellent position. There is no significant pneumothorax. The heart is normal in size. The patient's post median sternotomy. The right jugular line is in good position. CONCLUSION: 1. Post median sternotomy changes. Support hardware in good position. Trenton Motta MD on November 28, 2016 at 12:58 Board Certified Radiologist. This report was verified electronically.
[2016-11-28] MEDS: HYDROmorphone HCL PF 1 MG/ML VIAL IV PRN ×2 (13:01→13:15)
[2016-11-28] MEDS ORDERED: LACTATED RINGER'S 1000 ML INJ 2,000 ML IV ONE (14:30)
[2016-11-28] MEDS ORDERED: SODIUM CHLORID 0.9% 500 ML INJ 500 ML IV ONE (14:31)
[2016-11-28] MEDS ORDERED: NORMOSOL R INJ 2,000 ML IV ONE (14:31)
[2016-11-28] MEDS ORDERED: SODIUM CHLOR 0.9% 250 ML INJ 750 ML IV ONE (14:31)
[2016-11-28] MEDS ORDERED: SODIUM CHLORIDE 0.9% INJ 100 ML IV ONE (14:31)
[2016-11-28] MEDS: RESP: ALBUTEROL 2.5 MG/IPRATROPIUM 0.5 MG NEB (SCH) NEB ×2 (15:16→21:56)
[2016-11-28] MEDS ORDERED: RESP: ALBUTEROL 2.5 MG/IPRATROPIUM 0.5 MG NEB (SCH) NEB (16:00)
--- NOTE | 2016-11-28 16:20 | HHI.FF ---
Face to Face Verification Diagnosis: (1) Coronary artery disease (2) S/P CABG x 4 (3) Narcolepsy (4) Anxiety (5) Hypertension (6) COPD (chronic obstructive pulmonary disease) Home Health Nursing Order: Signs/symptoms of disease process Medication education-adverse effect Wound care and dressing changes Nursing assessment with vital signs Instructions: Heart and Vascular Surgery patients *Special attention to sternal dressing Mandatory frequency Assess and evaluation, 4 days in a row The next week 3X week 2 times a week for 4 weeks 1 time a week for 5 weeks Schedule Heart and Vascular patients for full 60 day certification period Initial visit Review Open Heart Surgery Discharge Instructions (Sternal precautions, Activity, Elastic hose, Incision care, Driving, Incentive spirometry, Smoking, [place], Work and other) Need Betadine to paint incision Medication reconciliation Importance of follow up care/ check on appointments Make calendar record temperature daily When to call [facility] nurse, review instructions, phone list Incentive Spirometry, demonstration Visit 1- Begin discharge instruction for patient family and/ or caregiver using teach back method- Signs and symptoms of infection Disease characteristics Medicines and side effects Foods and nutrition/ appetite Infection control/ hand washing/ hygiene Visit 2- Continue teaching Discharge instructions- include additional information on smoking cessation , sternal dressing (sternal vac) Visit 3- Continue teaching- Cough and deep breathing, incision monitoring. Choose my plate Visit 4- Continue teaching- Discuss limitations Discuss how they are feeling Discuss progress toward goals Remaining visits- continue teaching and monitoring PREVENA Single Use Negative Wound Therapy System Caregiver Instruction Sheet 1. A Prevena dressing system was applied to the chest incision during surgery , to promote wound healing. It works via a suction device (negative pressure wound therapy) to remove low to moderate levels of exudate (drainage) and infectious materials. We recommend that the device stay in place for up to seven days, from day of surgery. 2. Day of Surgery__/ Day of Removal ___/ 3. The dressing should only be removed by a health intensive care medicine specialist. Please arrange removal of device to coincide with Home Health visit and or with Nursing staff at Rehab 4. If skin reddening or irritation of skin occurs, or excessive drainage, please notify the Cardiovascular Surgeons office at [phone]. 5. Light showering is permissible; however the pump should be disconnected and placed in safe location, where it will not get wet. The dressing should not be exposed to direct spray or submerged in water. No bath tub / shower only. Ensure the end of the tubing attached to the dressing is facing down so that water does not enter the top of the tube. 6. To remove Prevena dressing: press purple button to turn off device / remove the suction. Then disconnect the tubing from the pump. The fixation strips should be stretched away from the skin and the dressing lifted at one corner and peeled back until it has been fully removed. 7. After removal, it is ok to shower daily using liquid dial soap and clean wash cloth, rinse and pat dry, and leave incision open to air dry. For any concerns regarding Prevena dressing, and or wounds, please contact Kathy Hardy, patient navigator at [phone] or notify the Cardiovascular Surgeons office at [phone]. Incentive spirometry Q1 hr x 10, while awake, also use acapella device hourly whole awake Sternal Breast Bone Precautions: NO pushing or pulling, ( pt must use sternal pillow to support chest with all activities and with coughing ( takes up to 3 months breast bone to heal ) Daily incision care: ok to shower daily, no tub bath. Wash all incisions with liquid dial soap, clean wash cloth to each site, rinse and pat dry. Observe for any signs of infection, such as drainage which is dark yellow, ricketts, green or foul smelling. Immediately report to the surgeon any drainage from the chest incision, or legs, and for any abnormal drainage from the chest tube sites. Notify surgeon if any temp >101.5 degrees F. When specialty dressing removed/ or if you do not have one, continue to shower daily as above, then rinse and pat incision dry and paint with betadine daily x 5 days. Allow steri strips to fall off if you have any. Avoid lotions, creams, salves, oils, etc. for the first month Please see attached forms for additional instructions regarding post Open Heart specialty wound vacuum dressings. ANNE or Prevena , Dressing to be removed by Nursing staff on __12/05/[address] Mcneil patients , please obtain CBC, BMP, PA & Lat CXR in 2 weeks, results to Dr. Mcneil ( prescription will be given) ( ) (Tele: [phone]) , F/U appointment: as per [place] instructions: PCP in 2 weeks, CV surgeon 2 weeks, Child Welfare Assistant 3-4 weeks For any questions regarding incisions/ dressing / meds / post op care or above Symptoms, Sunday 8am-5pm Heart & Vascular Surgery Office ( Dr. Manley & Dr. Mcneil), After Hours / Nights (5pm -8am) Weekends and Holidays Please call [facility] Card[facility] Unit (CIC) Charge Nurse I have seen patient Kenny Mayes on 11/28/16. My clinical findings support the need for the requested home health care services because: Deconditioned w/ increased weakness I certify that my clinical findings support that this patient is homebound because: Post-op weakness Sharita Tello Nov 28, 2016 16:20
[2016-11-28] MEDS: ONDANSETRON HCL 4 MG/2 ML VIAL IV PUSH PRN (19:13)
[2016-11-28] MEDS: ATORVASTATIN 40 MG TAB PO SCH (21:13)
[2016-11-28] MEDS: AMIODARONE 200 MG TAB PO SCH (21:14)
[2016-11-29] VITALS (17 sets, daily range): BP systolic 116–160; BP diastolic 52–78; PULSE 69–139; RESP 18–20; TEMP 98.9–99.7; O2SAT 94–98
[2016-11-29] MEDS: ACETAMINOPHEN 1000 MG/100 ML VIAL IV SCH ×2 (00:14→06:03)
[2016-11-29] MEDS: CLEVIDIPINE INJ 50 ML IV SCH ×2 (00:18→05:07)
[2016-11-29] MEDS: HYDROmorphone HCL PF 1 MG/ML VIAL IV PRN ×4 (00:36→07:08)
[2016-11-29] MEDS: RESP: ALBUTEROL 2.5 MG/IPRATROPIUM 0.5 MG NEB (SCH) NEB ×4 (03:51→20:03)
[2016-11-29 05:07] LABS: MEAN CELL VOLUME 82.1 FL (80.0-100.0); MEAN CORPUSCULAR HEMOGLOBIN 27.7 PG (27.0-34.0); MEAN CORPUSCULAR HGB CONC 33.8 % (32.0-36.0); PLATELET COUNT 156 TH/MM3 (150-450); RED BLOOD COUNT 4.38 MIL/MM3 (4.50-5.90); RED CELL DISTRIBUTION WIDTH 13.9 % (11.6-17.2); REVIEW FLAG FINAL; WHITE BLOOD COUNT 23.7 TH/MM3 (4.0-11.0)
[2016-11-29 05:31] LABS: BICARBONATE 25.3 MEQ/L (21.0-32.0); MAGNESIUM 2.3 MG/DL (1.5-2.5); POTASSIUM 4.3 MEQ/L (3.5-5.1)
--- NOTE | 2016-11-29 05:47 | RADRPT ---
EXAM DATE/TIME: 11/29/2016 04:38 [place] COMPARISON: CHEST SINGLE AP, November 28, 2016, 12:07. INDICATIONS : Short of breath. MEDICAL HISTORY : Hepatitis C. Hypertension. Syncope. Headache. Numbness. Chest pain. SURGICAL HISTORY : Tonsillectomy. ENCOUNTER: Subsequent ACUITY: 3 days PAIN SCORE: 0/10 LOCATION: Bilateral chest FINDINGS: Mild left base atelectasis again noted. Left chest tube remains in place. No perceptible pneumothorax or significant effusion demonstrated. Heart size stable, normal. Median sternotomy changes are again noted. There is a right internal jugul ar central venous catheter with tip in the superior vena cava. CONCLUSION: No significant change. Tyrone Bee MD on November 29, 2016 at 5:45 Board Certified Radiologist. This report was verified electronically.
[2016-11-29] MEDS: PANTOPRAZOLE SOD 40 MG DELAYED RELEASE TAB PO SCH (06:03)
[2016-11-29] MEDS: LEVOTHYROXINE SODIUM 25 MCG TAB PO SCH (06:03)
[2016-11-29] MEDS: METHYLPHENIDATE HCL 10 MG TAB PO SCH ×2 (06:24→12:08)
[2016-11-29] MEDS: traMADol HCL 50 MG TAB PO PRN (07:23)
[2016-11-29] MEDS: SODIUM CHLORIDE 0.9% FLUSH 10 ML FLUSH IV FLUSH SCH ×2 (08:16→20:19)
[2016-11-29] MEDS: LACTULOSE SYRUP 20 GM/30 ML CUP PO SCH (09:00)
[2016-11-29] MEDS: DOCUSATE SODIUM 50 MG/SENNA 8.6 MG TAB PO SCH ×2 (09:00→20:18)
[2016-11-29] MEDS: AMIODARONE 200 MG TAB PO SCH ×2 (09:04→20:18)
[2016-11-29] MEDS: METOPROLOL TARTRATE 5 MG/5 ML VIAL IV PUSH PRN ×2 (09:04→18:02)
[2016-11-29] MEDS: ACETAMINOPHEN/HYDROcodone 325 MG/10 MG TAB PO PRN ×3 (09:04→20:18)
[2016-11-29] MEDS: ASPIRIN EC 81 MG TABEC PO SCH (09:04)
[2016-11-29] MEDS: amLODIPine BESYLATE 5 MG TAB PO SCH (09:04)
[2016-11-29] MEDS ORDERED: DEXTROSE 50% IN WATER 50 ML VIAL(D50) IV PRN (09:15)
[2016-11-29] MEDS ORDERED: POTASSIUM CHLORIDE 10 MEQ CONTROLLED RELEASE TAB PO ONE (09:15)
[2016-11-29] MEDS ORDERED: GLUCAGON 1 MG/ML VIAL OTHER PRN (09:15)
[2016-11-29] MEDS: DOCUSATE SODIUM 100 MG CAP PO SCH ×2 (09:15→20:18)
[2016-11-29] MEDS ORDERED: SOD PHOSPHATE/SOD BIPHOSPHATE (ADULT) ENEMA 133ML RECTAL PRN (09:15)
[2016-11-29] MEDS ORDERED: KETOROLAC TROMETHAMINE 60 MG/2 ML (IM) VIAL IM ONE (09:15)
[2016-11-29] MEDS ORDERED: FUROSEMIDE 40 MG/4 ML VIAL IV PUSH ONE (09:15)
[2016-11-29] MEDS ORDERED: BISACODYL 10 MG SUPP RECTAL PRN (09:15)
[2016-11-29] MEDS: METOPROLOL TARTRATE 25 MG TAB PO SCH ×2 (09:45→20:18)
--- NOTE | 2016-11-29 09:58 | EKG ---
Date Performed: 11/29/2016 Time Performed: 04:21:58 PTAGE: 66 years EKG: Sinus rhythm . Inferior infarct - age undetermined Lateral T wave changes are nonspecific Abnormal ECG PREVIOUS TRACING : 11/24/2016 18.18 Compared to previous tracing, nonspecific lateral T wave ch anges are now present. DOCTOR: Thomas Galvez Interpretating Date/Time 11/29/2016 09:57:16
[2016-11-29] MEDS: INSULIN ASPART SUPPLEMENTAL SCALE SQ SCH ×4 (10:36→21:00)
[2016-11-29] MEDS: POLYETHYLENE GLYCOL 17 GM PKG PO SCH (14:05)
--- NOTE | 2016-11-29 16:18 | PD.CAR.PN ---
CVT Progress Note Subjective/Hospital Course: 66/ male transferred from [facility] c/o several month hx of SOB, fatigue, underwent lexiscan + reversible defect lateral wall, EF 40%/ Underwent cardiac cath : LM 75%, 80% LAD, 90% 1st diagonal, RCA 100% EF 55 % by cath PMH: fibromyalgia, Hep C, HTN, COPD, Narcolepsy ( ritalin) 11/25 CP free OR Sunday 11/26 Pain free and hemodynamically stable Awaiting cath films from [facility] 11/27 Cardiac cath films reviewed by Dr Mcneil for surgery in am, pain free over the weekend 11/28 CABG x 4, MARI to LAD - good, SVG to D! - good, SVG to PLB - good, SVG to PDA - fair, EVH extubated after surgery , on Cleviprex for elevated BP post op 11/29 weaning off cleviprex, gentle diuresis painful, + rub on nasal cannula plan transfer to stepdown Objective: GENERAL: SKIN: Warm and dry.prevena to chest , incision intact to leg HEAD: Normocephalic. EYES: No scleral icterus. No injection or drainage. NECK: Supple, trachea midline. No JVD or lymphadenopathy. CARDIOVASCULAR: Regular rate and rhythm without murmurs, gallops, or rubs. RESPIRATORY: Breath sounds equal bilaterally. No accessory muscle use. chest tube to wall suction 180cc/ 12 hrs GASTROINTESTINAL: Abdomen soft, non-tender, nondistended. MUSCULOSKELETAL: No cyanosis, or edema. BACK: Nontender without obvious deformity. No CVA tenderness. Vital Signs Date Time Temp Pulse Resp B/P Pulse Ox O2 Delivery O2 Flow Rate FiO2 11/29/16 15:12 95 Room Air 11/29/16 15:05 98.9 78 18 142/72 96 Arterial Line 11/29/16 15:00 69 11/29/16 13:08 18 11/29/16 12:00 96 Room Air 11/29/16 12:00 18 11/29/16 11:00 79 11/29/16 11:00 99.3 78 18 132/74 96 130/52 11/29/16 09:49 98 Nasal Cannula 2.00 11/29/16 08:00 98 Nasal Cannula 2.00 11/29/16 07:00 82 11/29/16 07:00 99.1 87 18 129/66 94 147/57 11/29/16 04:00 94 Nasal Cannula 2.00 11/29/16 04:00 99.3 76 20 116/58 94 125/72 11/29/16 03:16 73 11/29/16 01:10 20 11/29/16 00:45 20 11/29/16 00:00 99.7 83 20 146/71 95 160/55 11/29/16 00:00 94 Nasal Cannula 2.00 11/28/16 23:27 82 11/28/16 21:56 95 Nasal Cannula 2.00 11/28/16 21:00 99.4 11/28/16 20:00 97 Nasal Cannula 2.00 11/28/16 20:00 99.4 72 18 145/72 96 135/53 11/28/16 19:45 16 11/28/16 19:27 84 11/28/16 16:10 99 Nasal Cannula 3.00 Labs: Laboratory Tests Test 11/29/16 04:15 White Blood Count 23.7 TH/MM3 (4.0-11.0) Red Blood Count 4.38 MIL/MM3 (4.50-5.90) Hemoglobin 12.2 GM/DL (13.0-17.0) Hematocrit 36.0 % (39.0-51.0) Mean Corpuscular Volume 82.1 FL (80.0-100.0) Mean Corpuscular Hemoglobin 27.7 PG (27.0-34.0) Mean Corpuscular Hemoglobin 33.8 % Concent (32.0-36.0) Red Cell Distribution Width 13.9 % (11.6-17.2) Platelet Count 156 TH/MM3 (150-450) Mean Platelet Volume 10.0 FL (7.0-11.0) Sodium Level 139 MEQ/L (136-145) Potassium Level 4.3 MEQ/L (3.5-5.1) Chloride Level 106 MEQ/L (98-107) Carbon Dioxide Level 25.3 MEQ/L (21.0-32.0) Anion Gap 8 MEQ/L (5-15) Blood Urea Nitrogen 13 MG/DL (7-18) Creatinine 1.17 MG/DL (0.60-1.30) Estimat Glomerular Filtration 63 ML/MIN (>89) Rate Random Glucose 97 MG/DL (74-106) Calcium Level 8.2 MG/DL (8.5-10.1) Magnesium Level 2.3 MG/DL (1.5-2.5) Result Diagram: 11/29/1641411/29/16414 Telemetry: NSR (1) COPD (chronic obstructive pulmonary disease) Plan: on prn nebs (2) Coronary artery disease Plan: ASA, BB statin gentle diuresis pulm toileting OOB, ambulate (3) Narcolepsy Plan: on ritalin (4) Anxiety (5) Hypertension Plan: stable Sharita Tello Nov 29, 2016 16:17
[2016-11-29] MEDS: oxyCODONE/ACETAMINOPHEN 10 MG/325 MG TAB PO PRN ×2 (17:00→23:39)
[2016-11-29] MEDS ORDERED: AMIODARONE 150 MG/D5W 97 ML BOLUS 60 MINUTES IV ONE ×2 (19:00)
[2016-11-29] MEDS: MAGNESIUM SULFATE 1 GM PREMIX 100 ML IV SCH ×2 (19:22→20:20)
[2016-11-29] MEDS: ATORVASTATIN 40 MG TAB PO SCH (20:18)
[2016-11-29] MEDS: SENNOSIDES 8.6 MG TAB PO SCH (20:18)
[2016-11-30] VITALS (33 sets, daily range): BP systolic 105–160; BP diastolic 56–83; PULSE 62–118; RESP 16; TEMP 97.8–99.1; O2SAT 92–100
[2016-11-30] MEDS: INSULIN ASPART SUPPLEMENTAL SCALE SQ SCH ×5 (02:00→20:02)
[2016-11-30] MEDS: METOPROLOL TARTRATE 5 MG/5 ML VIAL IV PUSH PRN ×2 (03:09→20:18)
[2016-11-30] MEDS: ACETAMINOPHEN/HYDROcodone 325 MG/10 MG TAB PO PRN ×3 (04:40→18:41)
[2016-11-30] MEDS: LEVOTHYROXINE SODIUM 25 MCG TAB PO SCH (05:21)
[2016-11-30] MEDS: PANTOPRAZOLE SOD 40 MG DELAYED RELEASE TAB PO SCH (05:21)
[2016-11-30 06:02] LABS: AUTOMATED NEUTROPHIL # 13.7 TH/MM3 (1.8-7.7); BASOPHIL % 0.1 % (0.0-2.0); HEMATOCRIT 32.1 % (39.0-51.0); LYMPH % 17.5 % (9.0-44.0); LYMPHOCYTE # 3.2 TH/MM3 (1.0-4.8); MEAN CELL VOLUME 82.4 FL (80.0-100.0); MEAN CORPUSCULAR HEMOGLOBIN 27.4 PG (27.0-34.0); MEAN CORPUSCULAR HGB CONC 33.2 % (32.0-36.0); MONO % 7.2 % (0.0-8.0); NEUT % 75.2 % (16.0-70.0); PLATELET COUNT 136 TH/MM3 (150-450); RED CELL DISTRIBUTION WIDTH 13.9 % (11.6-17.2); WHITE BLOOD COUNT 18.2 TH/MM3 (4.0-11.0)
[2016-11-30 06:17] LABS: HEMO FLAGS AUTO DIFF
[2016-11-30 06:25] LABS: BICARBONATE 27.3 MEQ/L (21.0-32.0); MAGNESIUM 2.2 MG/DL (1.5-2.5); POTASSIUM 4.2 MEQ/L (3.5-5.1)
[2016-11-30] MEDS: METHYLPHENIDATE HCL 10 MG TAB PO SCH ×2 (06:40→12:02)
[2016-11-30] MEDS: RESP: ALBUTEROL 2.5 MG/IPRATROPIUM 0.5 MG NEB (SCH) NEB ×3 (08:00→19:23)
[2016-11-30 08:04] LABS: BANDS 6 % (0-6); NEUTROPHIL # MANUAL DIFF 13.7 TH/MM3 (1.8-7.7); POLYS (SEG NEUTROPHILS) 69 % (16-70); WBC DIFF SAMPLE 100
[2016-11-30 08:05] LABS: PLATELET ESTIMATE SMEAR LOW (NORMAL); PLATELET MORPHOLOGY NORMAL (NORMAL); SCAN/DIFF FINAL DIFF MANUAL
[2016-11-30] MEDS: POLYETHYLENE GLYCOL 17 GM PKG PO SCH (08:41)
[2016-11-30] MEDS: LACTULOSE SYRUP 20 GM/30 ML CUP PO SCH (08:42)
[2016-11-30] MEDS: DOCUSATE SODIUM 100 MG CAP PO SCH ×2 (08:42→20:03)
[2016-11-30] MEDS: DOCUSATE SODIUM 50 MG/SENNA 8.6 MG TAB PO SCH ×2 (08:42→20:03)
[2016-11-30] MEDS: MULTIVITAMINS/MINERALS THERAPEUTIC TAB PO SCH (08:42)
[2016-11-30] MEDS: amLODIPine BESYLATE 5 MG TAB PO SCH (08:42)
[2016-11-30] MEDS: ASPIRIN EC 81 MG TABEC PO SCH (08:42)
[2016-11-30] MEDS: METOPROLOL TARTRATE 25 MG TAB PO SCH ×2 (08:43→19:57)
[2016-11-30] MEDS: AMIODARONE 200 MG TAB PO SCH ×3 (08:43→18:34)
[2016-11-30] MEDS: SODIUM CHLORIDE 0.9% FLUSH 10 ML FLUSH IV FLUSH SCH ×2 (08:49→20:03)
[2016-11-30] MEDS: MAGNESIUM HYDROXIDE SUSP 30 ML CUP PO SCH (09:00)
[2016-11-30] MEDS: traMADol HCL 50 MG TAB PO PRN (12:03)
[2016-11-30] MEDS: SODIUM CHLORIDE 0.9% FLUSH 10 ML FLUSH IV FLUSH PRN ×2 (12:57→18:33)
[2016-11-30] MEDS: ONDANSETRON HCL 4 MG/2 ML VIAL IV PUSH PRN (12:57)
--- NOTE | 2016-11-30 15:21 | EKG ---
Date Performed: 11/29/2016 Time Performed: 18:24:20 PTAGE: 66 years EKG: Atrial fibrillation with rapid ventricular response Inferior infarct - age undetermined Lat eral T wave changes are nonspecific Compared to previous tracing, the patient has developed atrial fi brillation with a rapid ventricular response Abnormal ECG PREVIOUS TRACING : 11/29/2016 04.21 DOCTOR: Selena Vaughn Interpretating Date/Time 11/30/2016 15:19:49
--- NOTE | 2016-11-30 16:40 | PD.CAR.PN ---
CVT Progress Note CVT: POD #: 2 Subjective/Hospital Course: 66/ male transferred from [facility] c/o several month hx of SOB, fatigue, underwent lexiscan + reversible defect lateral wall, EF 40%/ Underwent cardiac cath : LM 75%, 80% LAD, 90% 1st diagonal, RCA 100% EF 55 % by cath PMH: fibromyalgia, Hep C, HTN, COPD, Narcolepsy ( ritalin) 11/25 CP free OR Sunday 11/26 Pain free and hemodynamically stable Awaiting cath films from [facility] 11/27 Cardiac cath films reviewed by Dr Mcneil for surgery in am, pain free over the weekend 11/28 CABG x 4, MARI to LAD - good, SVG to D! - good, SVG to PLB - good, SVG to PDA - fair, EVH extubated after surgery , on Cleviprex for elevated BP post op 11/29 weaning off cleviprex, gentle diuresis painful, + rub on nasal cannula plan transfer to stepdown 11/30/16 Doing well, c/o pain related to chest tubes Objective: Vital Signs Date Time Temp Pulse Resp B/P Pulse Ox O2 Delivery O2 Flow Rate FiO2 11/30/16 14:00 70 11/30/16 13:00 72 11/30/16 12:20 67 11/30/16 12:20 96 Room Air 11/30/16 11:40 97.8 70 16 156/72 96 11/30/16 11:00 67 11/30/16 10:00 84 11/30/16 09:00 86 11/30/16 08:11 93 11/30/16 08:00 94 Room Air 11/30/16 08:00 70 11/30/16 07:40 98.8 67 16 151/83 100 11/30/16 07:00 64 11/30/16 06:00 62 11/30/16 05:00 72 11/30/16 04:00 116 11/30/16 03:46 111 11/30/16 03:24 Room Air 50 11/30/16 03:24 98.9 118 135/74 93 11/30/16 02:00 112 11/30/16 01:00 108 11/30/16 00:19 98 11/30/16 00:09 98.8 113 120/79 93 11/29/16 23:18 Room Air 11/29/16 23:00 116 11/29/16 22:00 122 11/29/16 21:00 128 11/29/16 20:00 128 11/29/16 19:00 99.5 117 138/75 95 11/29/16 19:00 Room Air 11/29/16 19:00 139 11/29/16 18:02 145/78 11/29/16 18:00 128 11/29/16 17:00 80 Labs: Laboratory Tests Test 11/30/16 05:45 White Blood Count 18.2 TH/MM3 (4.0-11.0) Red Blood Count 3.90 MIL/MM3 (4.50-5.90) Hemoglobin 10.7 GM/DL (13.0-17.0) Hematocrit 32.1 % (39.0-51.0) Mean Corpuscular Volume 82.4 FL (80.0-100.0) Mean Corpuscular Hemoglobin 27.4 PG (27.0-34.0) Mean Corpuscular Hemoglobin 33.2 % Concent (32.0-36.0) Red Cell Distribution Width 13.9 % (11.6-17.2) Platelet Count 136 TH/MM3 (150-450) Mean Platelet Volume 9.9 FL (7.0-11.0) Neutrophils (%) (Auto) 75.2 % (16.0-70.0) Lymphocytes (%) (Auto) 17.5 % (9.0-44.0) Monocytes (%) (Auto) 7.2 % (0.0-8.0) Eosinophils (%) (Auto) 0.0 % (0.0-4.0) Basophils (%) (Auto) 0.1 % (0.0-2.0) Neutrophils # (Auto) 13.7 TH/MM3 (1.8-7.7) Lymphocytes # (Auto) 3.2 TH/MM3 (1.0-4.8) Monocytes # (Auto) 1.3 TH/MM3 (0-0.9) Eosinophils # (Auto) 0.0 TH/MM3 (0-0.4) Basophils # (Auto) 0.0 TH/MM3 (0-0.2) CBC Comment AUTO DIFF Differential Total Cells 100 Counted Neutrophils % (Manual) 69 % (16-70) Band Neutrophils % 6 % (0-6) Lymphocytes % 15 % (9-44) Monocytes % 10 % (0-8) Neutrophils # (Manual) 13.7 TH/MM3 (1.8-7.7) Differential Comment FINAL DIFF MANUAL Platelet Estimate LOW (NORMAL) Platelet Morphology Comment NORMAL (NORMAL) Red Cell Morphology Comment NORMAL (NORMAL) Sodium Level 137 MEQ/L (136-145) Potassium Level 4.2 MEQ/L (3.5-5.1) Chloride Level 103 MEQ/L (98-107) Carbon Dioxide Level 27.3 MEQ/L (21.0-32.0) Anion Gap 7 MEQ/L (5-15) Blood Urea Nitrogen 22 MG/DL (7-18) Creatinine 1.06 MG/DL (0.60-1.30) Estimat Glomerular Filtration 70 ML/MIN (>89) Rate Random Glucose 122 MG/DL (74-106) Calcium Level 8.0 MG/DL (8.5-10.1) Magnesium Level 2.2 MG/DL (1.5-2.5) Result Diagram: 11/30/16 0545 11/30/16 0545 Cardiovascular: RRR Telemetry: NSR Pulmonary: CTA GI/: NABS, NT Incision: dry and intact CT: ~100ml/10 hrs Plan: D/C chest tubes Beta arvin Diurese Supp K Cont statin, ASA Encourage ambulation (1) COPD (chronic obstructive pulmonary disease) Plan: on prn nebs (2) Coronary artery disease Plan: ASA, BB statin gentle diuresis pulm toileting OOB, ambulate (3) Narcolepsy Plan: on ritalin (4) Anxiety (5) Hypertension Plan: stable Lupe Mcneil MD Nov 30, 2016 16:40
[2016-11-30] MEDS: FUROSEMIDE 40 MG/4 ML VIAL IV PUSH SCH (18:34)
[2016-11-30] MEDS: ALPRAZolam 0.5 MG TAB PO PRN (19:57)
[2016-11-30] MEDS: ATORVASTATIN 40 MG TAB PO SCH (19:57)
[2016-11-30] MEDS: POTASSIUM CHLORIDE 10 MEQ CONTROLLED RELEASE TAB PO SCH (19:57)
[2016-11-30] MEDS: SENNOSIDES 8.6 MG TAB PO SCH (20:02)
[2016-12-01] VITALS (28 sets, daily range): BP systolic 125–136; BP diastolic 60–75; PULSE 61–128; RESP 16–18; TEMP 97.9–100; O2SAT 94–99
[2016-12-01] MEDS: ACETAMINOPHEN/HYDROcodone 325 MG/10 MG TAB PO PRN ×2 (04:23→21:50)
[2016-12-01] MEDS: LEVOTHYROXINE SODIUM 25 MCG TAB PO SCH (05:36)
[2016-12-01] MEDS: PANTOPRAZOLE SOD 40 MG DELAYED RELEASE TAB PO SCH (05:36)
[2016-12-01] MEDS: INSULIN ASPART SUPPLEMENTAL SCALE SQ SCH ×4 (06:16→21:00)
[2016-12-01 06:26] LABS: AUTOMATED NEUTROPHIL # 11.5 TH/MM3 (1.8-7.7); BASOPHIL % 0.1 % (0.0-2.0); HEMATOCRIT 30.9 % (39.0-51.0); HEMO FLAGS DIFF FINAL; LYMPH % 22.6 % (9.0-44.0); LYMPHOCYTE # 3.8 TH/MM3 (1.0-4.8); MEAN CELL VOLUME 83.5 FL (80.0-100.0); MEAN CORPUSCULAR HEMOGLOBIN 27.9 PG (27.0-34.0); MEAN CORPUSCULAR HGB CONC 33.4 % (32.0-36.0); MONO % 8.2 % (0.0-8.0); NEUT % 69.1 % (16.0-70.0); PLATELET COUNT 146 TH/MM3 (150-450); RED CELL DISTRIBUTION WIDTH 14.1 % (11.6-17.2); WHITE BLOOD COUNT 16.7 TH/MM3 (4.0-11.0)
[2016-12-01 06:42] LABS: ALT (GPT) 20 U/L (12-78); ANION GAP 6 MEQ/L (5-15); AST (GOT) 31 U/L (15-37); BICARBONATE 28.9 MEQ/L (21.0-32.0); BLOOD UREA NITROGEN 21 MG/DL (7-18); CHLORIDE 104 MEQ/L (98-107); GLOMERULAR FILTRATION RATE 77 ML/MIN (>89); MAGNESIUM 2.1 MG/DL (1.5-2.5); POTASSIUM 4.4 MEQ/L (3.5-5.1); SODIUM (NA) 139 MEQ/L (136-145)
[2016-12-01 06:44] LABS: ALKALINE PHOSPHATASE 67 U/L (45-117)
[2016-12-01] MEDS: METHYLPHENIDATE HCL 10 MG TAB PO SCH ×2 (07:00→12:11)
[2016-12-01] MEDS: amLODIPine BESYLATE 5 MG TAB PO SCH (07:53)
[2016-12-01] MEDS: MULTIVITAMINS/MINERALS THERAPEUTIC TAB PO SCH (07:53)
[2016-12-01] MEDS: AMIODARONE 200 MG TAB PO SCH ×3 (07:53→17:18)
[2016-12-01] MEDS: ASPIRIN EC 81 MG TABEC PO SCH (07:54)
[2016-12-01] MEDS: POTASSIUM CHLORIDE 10 MEQ CONTROLLED RELEASE TAB PO SCH ×2 (07:54→21:48)
[2016-12-01] MEDS: FUROSEMIDE 40 MG/4 ML VIAL IV PUSH SCH ×2 (07:54→17:18)
[2016-12-01] MEDS: LACTULOSE SYRUP 20 GM/30 ML CUP PO SCH (07:54)
[2016-12-01] MEDS: METOPROLOL TARTRATE 25 MG TAB PO SCH ×2 (07:54→21:48)
[2016-12-01] MEDS: MAGNESIUM HYDROXIDE SUSP 30 ML CUP PO SCH (07:55)
[2016-12-01] MEDS: POLYETHYLENE GLYCOL 17 GM PKG PO SCH (07:55)
[2016-12-01] MEDS: SODIUM CHLORIDE 0.9% FLUSH 10 ML FLUSH IV FLUSH SCH ×2 (07:55→21:00)
[2016-12-01] MEDS: DOCUSATE SODIUM 100 MG CAP PO SCH ×2 (07:55→21:00)
[2016-12-01] MEDS: DOCUSATE SODIUM 50 MG/SENNA 8.6 MG TAB PO SCH ×2 (07:56→21:00)
[2016-12-01] MEDS: METOPROLOL TARTRATE 5 MG/5 ML VIAL IV PUSH PRN ×2 (08:21→10:31)
[2016-12-01] MEDS: RESP: ALBUTEROL 2.5 MG/IPRATROPIUM 0.5 MG NEB (SCH) NEB (08:28)
[2016-12-01] MEDS: ALPRAZolam 0.5 MG TAB PO PRN ×2 (09:40→21:51)
[2016-12-01] MEDS: oxyCODONE/ACETAMINOPHEN 10 MG/325 MG TAB PO PRN ×2 (09:40→15:18)
[2016-12-01] MEDS ORDERED: AMIODARONE 150 MG/D5W 97 ML BOLUS 10 MINUTES IV ONE ×2 (11:15)
--- NOTE | 2016-12-01 11:31 | PD.CAR.PN ---
CVT Progress Note CVT: POD #: 3 Subjective/Hospital Course: 66/ male transferred from [facility] c/o several month hx of SOB, fatigue, underwent lexiscan + reversible defect lateral wall, EF 40%/ Underwent cardiac cath : LM 75%, 80% LAD, 90% 1st diagonal, RCA 100% EF 55 % by cath PMH: fibromyalgia, Hep C, HTN, COPD, Narcolepsy ( ritalin) 11/25 CP free OR Sunday 11/26 Pain free and hemodynamically stable Awaiting cath films from [facility] 11/27 Cardiac cath films reviewed by Dr Mcneil for surgery in am, pain free over the weekend 11/28 CABG x 4, MARI to LAD - good, SVG to D! - good, SVG to PLB - good, SVG to PDA - fair, EVH extubated after surgery , on Cleviprex for elevated BP post op 11/29 weaning off cleviprex, gentle diuresis painful, + rub on nasal cannula plan transfer to stepdown 11/30/16 Doing well, c/o pain related to chest tubes 12/01/16 No complaints, doing well Objective: Vital Signs Date Time Temp Pulse Resp B/P Pulse Ox O2 Delivery O2 Flow Rate FiO2 12/01/16 10:42 119 12/01/16 10:29 98.2 123 18 125/75 97 12/01/16 10:22 16 12/01/16 10:04 113 12/01/16 08:28 99 12/01/16 08:28 98 12/01/16 08:08 94 Room Air 12/01/16 08:00 125 12/01/16 07:37 98.2 82 16 136/72 94 12/01/16 07:21 98.2 12/01/16 07:15 80 12/01/16 06:22 76 12/01/16 05:00 70 12/01/16 04:00 76 12/01/16 03:27 Room Air 2.00 21 12/01/16 03:00 99.0 79 125/66 96 12/01/16 03:00 71 12/01/16 02:00 70 12/01/16 01:00 66 12/01/16 00:00 62 11/30/16 23:14 99.1 67 105/56 92 11/30/16 23:11 Room Air 21 11/30/16 23:00 65 11/30/16 22:00 102 11/30/16 21:34 82 11/30/16 20:00 88 11/30/16 19:20 95 21 11/30/16 19:00 99.1 86 140/68 95 11/30/16 19:00 Room Air 2.00 50 11/30/16 18:38 160/68 11/30/16 18:26 78 11/30/16 17:00 74 11/30/16 16:00 80 11/30/16 15:30 98.5 74 16 123/64 96 11/30/16 15:30 95 Room Air 11/30/16 15:00 77 11/30/16 14:00 70 11/30/16 13:00 72 11/30/16 12:20 67 11/30/16 12:20 96 Room Air 11/30/16 11:40 97.8 70 16 156/72 96 Labs: Laboratory Tests Test 12/01/16 06:00 White Blood Count 16.7 TH/MM3 (4.0-11.0) Red Blood Count 3.70 MIL/MM3 (4.50-5.90) Hemoglobin 10.3 GM/DL (13.0-17.0) Hematocrit 30.9 % (39.0-51.0) Mean Corpuscular Volume 83.5 FL (80.0-100.0) Mean Corpuscular Hemoglobin 27.9 PG (27.0-34.0) Mean Corpuscular Hemoglobin 33.4 % Concent (32.0-36.0) Red Cell Distribution Width 14.1 % (11.6-17.2) Platelet Count 146 TH/MM3 (150-450) Mean Platelet Volume 9.8 FL (7.0-11.0) Neutrophils (%) (Auto) 69.1 % (16.0-70.0) Lymphocytes (%) (Auto) 22.6 % (9.0-44.0) Monocytes (%) (Auto) 8.2 % (0.0-8.0) Eosinophils (%) (Auto) 0.0 % (0.0-4.0) Basophils (%) (Auto) 0.1 % (0.0-2.0) Neutrophils # (Auto) 11.5 TH/MM3 (1.8-7.7) Lymphocytes # (Auto) 3.8 TH/MM3 (1.0-4.8) Monocytes # (Auto) 1.4 TH/MM3 (0-0.9) Eosinophils # (Auto) 0.0 TH/MM3 (0-0.4) Basophils # (Auto) 0.0 TH/MM3 (0-0.2) CBC Comment DIFF FINAL Differential Comment Sodium Level 139 MEQ/L (136-145) Potassium Level 4.4 MEQ/L (3.5-5.1) Chloride Level 104 MEQ/L (98-107) Carbon Dioxide Level 28.9 MEQ/L (21.0-32.0) Anion Gap 6 MEQ/L (5-15) Blood Urea Nitrogen 21 MG/DL (7-18) Creatinine 0.98 MG/DL (0.60-1.30) Estimat Glomerular Filtration 77 ML/MIN (>89) Rate Random Glucose 92 MG/DL (74-106) Calcium Level 7.9 MG/DL (8.5-10.1) Magnesium Level 2.1 MG/DL (1.5-2.5) Total Bilirubin 1.0 MG/DL (0.2-1.0) Aspartate Amino Transf 31 U/L (15-37) (AST/SGOT) Alanine Aminotransferase 20 U/L (12-78) (ALT/SGPT) Alkaline Phosphatase 67 U/L (45-117) Total Protein 6.2 GM/DL (6.4-8.2) Albumin 2.8 GM/DL (3.4-5.0) Result Diagram: 12/01/16 0600 12/01/16 0600 Cardiovascular: IRR, intermittent AFIB Telemetry: SVT Pulmonary: CTA GI/: NABS, NT Incision: dry and intact Plan: Treat SVT with IV amiodarone, continue beta arvin Plan d/c tomorrow Encourage ambulation (1) COPD (chronic obstructive pulmonary disease) Plan: on prn nebs (2) Coronary artery disease Plan: ASA, BB statin gentle diuresis pulm toileting OOB, ambulate (3) Narcolepsy Plan: on ritalin (4) Anxiety (5) Hypertension Plan: stable Lupe Mcneil MD Dec 01, 2016 11:31
[2016-12-01] MEDS: SENNOSIDES 8.6 MG TAB PO SCH (21:00)
[2016-12-01] MEDS: ATORVASTATIN 40 MG TAB PO SCH (21:50)
[2016-12-02] VITALS (12 sets, daily range): BP systolic 126–148; BP diastolic 32–76; PULSE 63–118; RESP 14–18; TEMP 98.7–99.5; O2SAT 93–95
[2016-12-02] MEDS: LEVOTHYROXINE SODIUM 25 MCG TAB PO SCH (06:08)
[2016-12-02] MEDS: PANTOPRAZOLE SOD 40 MG DELAYED RELEASE TAB PO SCH (06:08)
[2016-12-02] MEDS: oxyCODONE/ACETAMINOPHEN 10 MG/325 MG TAB PO PRN (06:09)
[2016-12-02] MEDS: METHYLPHENIDATE HCL 10 MG TAB PO SCH ×2 (06:09→11:23)
[2016-12-02] MEDS: ALPRAZolam 0.5 MG TAB PO PRN ×2 (06:12→11:23)
[2016-12-02] MEDS: INSULIN ASPART SUPPLEMENTAL SCALE SQ SCH ×2 (07:00→11:22)
[2016-12-02] MEDS ORDERED: ATOR40TA16 PO (07:02)
[2016-12-02] MEDS ORDERED: DOCU1CAP39 PO (07:02)
[2016-12-02] MEDS ORDERED: HYDR-3583 PO (07:02)
[2016-12-02] MEDS ORDERED: ASPI-99 PO (07:02)
--- NOTE | 2016-12-02 07:08 | HHI.DS ---
Discharge Summary Admission Date Nov 24, 2016 at 16:08 Discharge Date: Dec 02, 2016 Admitting Diagnosis CAD unstable angina HTN Hyperlipidemia (1) COPD (chronic obstructive pulmonary disease) Diagnosis: Secondary (2) Coronary artery disease Diagnosis: Principal (3) Narcolepsy Diagnosis: Secondary (4) Anxiety Diagnosis: Secondary (5) Hypertension Diagnosis: Secondary (6) Unstable angina Diagnosis: Principal (7) S/P CABG x 4 Diagnosis: Principal (8) Hyperlipemia Diagnosis: Secondary Procedures CABG x 4 Brief History Subjective/Hospital Course: 66/ male transferred from [facility] c/o several month hx of SOB, fatigue, underwent lexiscan + reversible defect lateral wall, EF 40%/ Underwent cardiac cath : LM 75%, 80% LAD, 90% 1st diagonal, RCA 100% EF 55 % by cath PMH: fibromyalgia, Hep C, HTN, COPD, Narcolepsy ( ritalin) 66y/o [facility] for unstable angina and multivessel CAD. He has HTN and hyperlipidemia as well as the DX above. CBC/BMP: 12/01/16 0600 12/01/16 0600 Significant Findings Laboratory Tests Test 11/30/16 12/01/16 05:45 06:00 White Blood Count 18.2 TH/MM3 16.7 TH/MM3 (4.0-11.0) (4.0-11.0) Red Blood Count 3.90 MIL/MM3 3.70 MIL/MM3 (4.50-5.90) (4.50-5.90) Hemoglobin 10.7 GM/DL 10.3 GM/DL (13.0-17.0) (13.0-17.0) Hematocrit 32.1 % 30.9 % (39.0-51.0) (39.0-51.0) Platelet Count 136 TH/MM3 146 TH/MM3 (150-450) (150-450) Neutrophils (%) (Auto) 75.2 % (16.0-70.0) Neutrophils # (Auto) 13.7 TH/MM3 11.5 TH/MM3 (1.8-7.7) (1.8-7.7) Monocytes # (Auto) 1.3 TH/MM3 1.4 TH/MM3 (0-0.9) (0-0.9) Monocytes % 10 % (0-8) Neutrophils # (Manual) 13.7 TH/MM3 (1.8-7.7) Platelet Estimate LOW (NORMAL) Blood Urea Nitrogen 22 MG/DL (7-18) 21 MG/DL (7-18) Estimat Glomerular Filtration 70 ML/MIN (>89) 77 ML/MIN (>89) Rate Random Glucose 122 MG/DL (74-106) Calcium Level 8.0 MG/DL 7.9 MG/DL (8.5-10.1) (8.5-10.1) Monocytes (%) (Auto) 8.2 % (0.0-8.0) Total Protein 6.2 GM/DL (6.4-8.2) Albumin 2.8 GM/DL (3.4-5.0) Imaging Last Impressions Chest X-Ray 11/29/16 0500 Signed Impressions: Service Date/Time: Tuesday, November 29, 2016 04:38 - CONCLUSION: No significant change. Tyrone Bee MD Lower Extremity Ultrasound 11/24/16 0000 Signed Impressions: Service Date/Time: Thursday, November 24, 2016 21:10 - CONCLUSION: Normal examination. Cecilio Sinclair MD Carotid Artery Ultrasound 11/24/16 0000 Signed Impressions: Service Date/Time: Thursday, November 24, 2016 20:45 - CONCLUSION: Mild calcified plaque of the carotid bulbs bilaterally. No evidence of hemodynamically significant carotid stenosis. Jaciel Hobbs MD PE at Discharge chest - CTA COR - RRR ABD - soft, NT, NABS Hospital Course Patient underwent CABG x 4 on 11/28/16. His postoperative course was unremarkable. CVT: POD #: 3 11/25 CP free OR Sunday 11/26 Pain free and hemodynamically stable Awaiting cath films from [facility] 11/27 Cardiac cath films reviewed by Dr Mcneil for surgery in am, pain free over the weekend 11/28 CABG x 4, MARI to LAD - good, SVG to D! - good, SVG to PLB - good, SVG to PDA - fair, EVH extubated after surgery , on Cleviprex for elevated BP post op 11/29 weaning off cleviprex, gentle diuresis painful, + rub on nasal cannula plan transfer to stepdown 11/30/16 Doing well, c/o pain related to chest tubes 6/23/17 No complaints, doing well Pt Condition on Discharge: Good Discharge Disposition: Disch w/ Home Health Serv Discharge Instructions DIET: Follow Instructions for: Heart Healthy Diet Activities you can perform: Weight Bearing as Gregory, Shower Only-No Bath Activities to avoid: Lifting/Bending, Driving Follow up Referrals: Cardiology with Angus Torres MD PCP Follow-up with Alexy Barnes M.d. Surgical with Sharita Tello New Orders: BASIC METABOLIC PROF - 2 Weeks CBC NO DIFF - 2 Weeks X-RAY CHEST PA & LAT - 2 Weeks New Medications: Aspirin DR (Adult Aspirin EC Low Strength) 81 Mg Tabec 81 MG PO DAILY Blood Clot Prevention #100 Ref 6 TAB Atorvastatin (Atorvastatin) 40 Mg Tab 40 MG PO HS Cholesterol Management #30 Ref 3 TAB Docusate Sodium (Dok) 100 Mg Cap 100 MG PO BID Constipation #28 Ref 0 CAP Hydrocodone-Acetaminophen (Hydrocodone-Acetaminophen) 10-325 mg Tab 1 TAB PO Q6H PRN PAIN SCALE 6 TO 10 #30 Ref 0 TAB Continued Medications: Albuterol Neb (Albuterol Neb) 2.5 Mg/0.5 Ml Neb 2.5 MG NEB Q4HR NEB Note: The Albuterol Sulfate Inhalation Solution is concentrated and must be diluted. Read complete instructions carefully before using. PRN SOB/WHEEZING EA Amlodipine-Valsartan (Amlodipine-Valsartan) 5-320 Mg Tab 1 TAB PO DAILY Blood Pressure Management #30 Ref 0 TAB Cyclobenzaprine (Flexeril) 5 Mg Tab 5 MG PO HS Muscle Spasm #90 Ref 0 TAB Lactulose Liq (Constulose Liq) 10 Gm/15 Ml Soln Levothyroxine (Levothyroxine) 25 Mcg Tab 25 MCG PO DAILY Thyroid #30 Ref 0 TAB Methylphenidate HCl (Methylphenidate LA) 20 Mg Cpbp.50.50 PO TID Metoprolol Tartrate (Metoprolol Tartrate) 50 Mg Tab 50 MG PO BID #60 Ref 0 TAB Pantoprazole (Pantoprazole) 40 Mg Tab 40 MG PO DAILY Reflux #30 Ref 0 TAB Tramadol (Tramadol) 50 Mg Tab 50 MG PO Q8H PRN PAIN Ref 0 TAB Discontinued Medications: Hydrocodone-Acetaminophen (Hydrocodone-Acetaminophen) 10-300 Tab 1 TAB PO Q4H PRN PAIN Ref 0 TAB Lupe Mcneil MD Dec 02, 2016 07:08
[2016-12-02] MEDS: AMIODARONE 200 MG TAB PO SCH ×2 (08:36→11:23)
[2016-12-02] MEDS: MULTIVITAMINS/MINERALS THERAPEUTIC TAB PO SCH (08:36)
[2016-12-02] MEDS: ASPIRIN EC 81 MG TABEC PO SCH (08:36)
[2016-12-02] MEDS: amLODIPine BESYLATE 5 MG TAB PO SCH (08:36)
[2016-12-02] MEDS: LACTULOSE SYRUP 20 GM/30 ML CUP PO SCH (08:37)
[2016-12-02] MEDS: FUROSEMIDE 40 MG/4 ML VIAL IV PUSH SCH (08:37)
[2016-12-02] MEDS: METOPROLOL TARTRATE 25 MG TAB PO SCH (08:37)
[2016-12-02] MEDS: POTASSIUM CHLORIDE 10 MEQ CONTROLLED RELEASE TAB PO SCH (08:37)
[2016-12-02] MEDS: DOCUSATE SODIUM 100 MG CAP PO SCH (08:38)
[2016-12-02] MEDS: MAGNESIUM HYDROXIDE SUSP 30 ML CUP PO SCH (08:38)
[2016-12-02] MEDS: SODIUM CHLORIDE 0.9% FLUSH 10 ML FLUSH IV FLUSH SCH (08:38)
[2016-12-02] MEDS: POLYETHYLENE GLYCOL 17 GM PKG PO SCH (08:38)
[2016-12-02] MEDS: DOCUSATE SODIUM 50 MG/SENNA 8.6 MG TAB PO SCH (08:42)
[2016-12-02] MEDS: METOPROLOL TARTRATE 5 MG/5 ML VIAL IV PUSH PRN ×2 (10:43→11:57)
[2016-12-02] MEDS: ACETAMINOPHEN/HYDROcodone 325 MG/10 MG TAB PO PRN (11:23)
[2016-12-02] MEDS ORDERED: AMIO200T PO (12:18)
== END 2016-12-02 13:02 | disposition home health service (06) | DRG 236 ==
LOC: HCIN 16:08 → HCIS 11-28 07:32 → HCVR 11-28 11:27 → HCIN 11-29 16:03
PROVIDERS: ADMIT Thoracic Surgery (Cardiothoracic Vascular Surgery); ATTEND Thoracic Surgery (Cardiothoracic Vascular Surgery)
PROC: 06BQ4ZZ Excision of Left Saphenous Vein, Percutaneous Endoscopic Approach (ICD-10-PCS; 2016-11-28)
PROC: 5A1221Z Performance of Cardiac Output, Continuous (ICD-10-PCS; 2016-11-28)
PROC: 021209W Bypass Coronary Artery, Three Arteries from Aorta with Autologous Venous Tissue, Open Approach (ICD-10-PCS; principal; 2016-11-28 06:58)
PROC: 02100Z9 Bypass Coronary Artery, One Artery from Left Internal Mammary, Open Approach (ICD-10-PCS; 2016-11-28 06:58)
DX: I25.110 Atherosclerotic heart disease of native coronary artery with unstable angina pectoris (principal); I47.1 Supraventricular tachycardia; I25.82 Chronic total occlusion of coronary artery; J44.9 Chronic obstructive pulmonary disease, unspecified; I10 Essential (primary) hypertension; M79.7 Fibromyalgia; B19.20 Unspecified viral hepatitis C without hepatic coma; E05.90 Thyrotoxicosis, unspecified without thyrotoxic crisis or storm; G47.419 Narcolepsy without cataplexy; E78.5 Hyperlipidemia, unspecified; F41.9 Anxiety disorder, unspecified; Z87.891 Personal history of nicotine dependence
CPT/HCPCS: 71010; 71020; 76937; 80048; 80053; 80061; 81001; 82948; 83036; 83735; 85007; 85014; 85025; 85027; 85610; 86850; 86900; 86901; 86920; 87641; 93005; 93318; 93880; 93970; 93998; 94002; 94010; 94150; 94640; 94664; 94667; C9248; C9399; J0131; J0282; J0360; J0690; J1170; J1644; J1815; J1817; J1885; J1940; J2150; J2250; J2405; J2440; J2710; J2720; J2930; J3010; J3370; J3475; J3480; J7040; J7050; J7120; J7613; P9047